=== PATIENT | female | born 1950 | race Caucasian/White ===

== ENCOUNTER 2020-10-12 07:14 | Day surgery (SDC) | payer MEDICARE ==
[~2020-10-12] VITALS: Ht 170.2 cm; Wt 93.2 kg
[2020-10-12 10:15] VITALS: BP 168/63; PULSE 78; TEMP 97.3
[2020-10-12 14:14] VITALS: TEMP 97.5
[2020-10-12] MEDS ORDERED: NORCO 325 MG-51 TAB PO (14:16)
[2020-10-12 14:35] VITALS: BP 146/59; PULSE 75
--- NOTE | 2020-10-12 14:35 | NUR ---
Patient returns to room 1 per cart from PACU accompanied by Shahnaz CAMPBELL and is awake and alert. Dressing on the right axilla and right breast clean and dry. IV fluids infusing and site is free of redness. Temp 97.7 and room air sats 97%. Denies pain or nausea. Siderails up x2 and call light in reach.
[2020-10-12 14:50] VITALS: BP 146/69; PULSE 74
--- NOTE | 2020-10-12 14:50 | NUR ---
Sipping on coffee and water. Eating crackers. Denies pain or nausea.
[2020-10-12 15:05] VITALS: BP 155/60; PULSE 70
--- NOTE | 2020-10-12 15:05 | NUR ---
Resting and continues to eat crackers and drink coffee and water.
[2020-10-12 15:20] VITALS: BP 145/68; PULSE 69
--- NOTE | 2020-10-12 15:20 | NUR ---
Denies pain or nausea. Dressing remains clean and dry to the right breast area. IV discontinued and dresses self. Dismissal instructions given and voices understanding of these. Roby script provided.
--- NOTE | 2020-10-12 15:31 | NUR ---
Patient dismissed to home driven by daughter and taken to the front door per wheelchair and assisted into vehicle with instructions in hand.
== END 2020-10-12 15:31 | disposition home or self-care (01) ==
LOC: SDCO 07:14
DX: C50.511 Malignant neoplasm of lower-outer quadrant of right female breast (principal); Z17.1 Estrogen receptor negative status [ER-]; Z01.818 Encounter for other preprocedural examination; Z90.710 Acquired absence of both cervix and uterus; Z90.49 Acquired absence of other specified parts of digestive tract; Z80.42 Family history of malignant neoplasm of prostate; Z88.0 Allergy status to penicillin
CPT/HCPCS: A9541; J0690; J2250; J2704; J2795; J3010; J7120; Q9968

== ENCOUNTER → 2020-11-11 | Outpatient (CLI) | payer MEDICARE ==
[~2020-11-11] MED LIST: NORCO 325 MG-51 TAB PO
== END ==
LOC: COL.VAS 12:12
DX: Z01.818 Encounter for other preprocedural examination (principal); C50.919 Malignant neoplasm of unspecified site of unspecified female breast; I51.7 Cardiomegaly

== ENCOUNTER → 2021-07-04 | Outpatient (CLI) | payer MEDICARE | LOC: COL.RAD 13:14 | DX: N28.1 Cyst of kidney, acquired (principal) ==

== ENCOUNTER 2021-12-03 13:51 | Emergency (ER) | payer MEDICARE ==
[~2021-12-03] VITALS: Ht 170.2 cm; Wt 81.8 kg
[2021-12-03 13:57] VITALS: TEMP 97.7
[2021-12-03] MEDS ORDERED: CEPHALEXIN500 M1 PO (15:00)
[2021-12-03 15:16] VITALS: BP 138/87; PULSE 79
[2021-12-03] MEDS ORDERED: DIFLUCAN150 MG PO (16:19)
== END 2021-12-03 15:16 | disposition home or self-care (01) ==
LOC: COL.ER 13:51
DX: N75.1 Abscess of Bartholin's gland (principal); Z88.0 Allergy status to penicillin